=== PATIENT | male | born 1960 | race Two or more races ===

== ENCOUNTER 2025-06-10 05:54 | Inpatient (IN) | payer SELFPAY ==
[2025-06-10] MEDS ORDERED: Acetaminophen 325 MG TAB PO PRN (06:47)
[2025-06-10 06:53] VITALS: BMI 35.4
[2025-06-10 08:29] LABS: #Basophils Less than 0.03 10x3/uL (0.0-0.2); #Eosinophils Less than 0.03 10x3/uL (0.0-0.7); #Monocytes 0.31 10x3/uL (0.11-0.59); #Neutrophils 3.94 10x3/uL (1.40-6.50); %Basophils 0.2 % (0.0-1.0); %Eosinophils 0.2 % (0.0-10.0); %Lymphocytes 28.4 % (21.0-51.0); %Monocytes 5.2 % (0.0-10.0); %Neutrophils 65.8 % (42.0-75.0); Hematocrit 45.0 % (42.0-52.0); Hemoglobin 13.5 g/dL (14.0-18.0); Mean Corpuscular Hemoglobin 20.0 pg (27.0-31.0); Mean Corpuscular Volume 66.7 fL (78.0-98.0); Platelet Count 208 10x3/uL (130-400); Red Blood Cell (RBC) Count 6.75 mill/uL (4.70-6.10); White Blood Cell (WBC) Count 5.98 10x3/uL (4.8-10.8)
[2025-06-10 08:44] LABS: ALT (SGPT) 21 U/L (Less than 45); AST (SGOT) 18 U/L (11-34); Albumin 4.3 g/dL (3.1-4.5); Alkaline Phosphatase 89 U/L (40-110); Anion Gap 16 mmol/L (10-20); BUN (Urea Nitrogen) 9 mg/dL (8.4-25.7); Bilirubin, Total 0.4 mg/dL (0.3-1.2); Calc. Creatinine Clearance 137 mL/min (70-130); Calcium 9.7 mg/dL (7.8-10.44); Carbon Dioxide 26 mmol/L (23-31); Cardiac Risk 2.9 (Less than 4.5); Chloride 105 mmol/L (98-107); Cholesterol 135 mg/dl (< 200 Desired); Globulin 3.2 g/dL (2.4-3.5); Glucose 111 mg/dL (80-115); HDL Cholesterol 46 mg/dL (>60 Neg Risk); LDL Cholesterol, Calculated 72 mg/dL; Potassium 4.3 mmol/L (3.5-5.1); Sodium 143 mmol/L (136-145); Triglycerides 84 mg/dL (Less than 150)
[2025-06-10] MEDS: Ezetimibe 10 MG TAB PO SCH (09:06)
[2025-06-10] MEDS: Enoxaparin 40 MG (0.4 mL) SYRINGE SC SCH (09:07)
[2025-06-10 09:40] LABS: Anisocytosis SLIGHT = 6-15 cells HPF (0-5); Burr Cells SLIGHT = 2-5 cells HPF (0-1); Microcytosis SLIGHT = 6-15 cells HPF (0-5); Platelet Adequacy Comment Platelets Normal; Polychromasia SLIGHT = 2-3 cells HPF (0-2); Schistocytes SLIGHT = 2-5 cells HPF (0-1)
[2025-06-10] MEDS: Amiodarone 200 MG TAB PO SCH ×2 (11:10→14:30)
[2025-06-11 04:26] LABS: #Basophils Less than 0.03 10x3/uL (0.0-0.2); #Eosinophils 0.12 10x3/uL (0.0-0.7); #Monocytes 0.46 10x3/uL (0.11-0.59); #Neutrophils 2.40 10x3/uL (1.40-6.50); %Basophils 0.4 % (0.0-1.0); %Eosinophils 2.2 % (0.0-10.0); %Lymphocytes 43.7 % (21.0-51.0); %Monocytes 8.6 % (0.0-10.0); %Neutrophils 44.9 % (42.0-75.0); Hematocrit 40.2 % (42.0-52.0); Hemoglobin 12.2 g/dL (14.0-18.0); Mean Corpuscular Hemoglobin 20.1 pg (27.0-31.0); Mean Corpuscular Volume 66.3 fL (78.0-98.0); Platelet Count 221 10x3/uL (130-400); Red Blood Cell (RBC) Count 6.06 mill/uL (4.70-6.10); White Blood Cell (WBC) Count 5.35 10x3/uL (4.8-10.8)
[2025-06-11 04:31] LABS: ALT (SGPT) 17 U/L (Less than 45); AST (SGOT) 18 U/L (11-34); Albumin 3.8 g/dL (3.1-4.5); Alkaline Phosphatase 85 U/L (40-110); Anion Gap 12 mmol/L (10-20); BUN (Urea Nitrogen) 15 mg/dL (8.4-25.7); Bilirubin, Total 0.3 mg/dL (0.3-1.2); Calc. Creatinine Clearance 124 mL/min (70-130); Calcium 9.1 mg/dL (7.8-10.44); Carbon Dioxide 26 mmol/L (23-31); Chloride 110 mmol/L (98-107); Globulin 2.8 g/dL (2.4-3.5); Glucose 124 mg/dL (80-115); Potassium 3.9 mmol/L (3.5-5.1); Sodium 144 mmol/L (136-145)
[2025-06-11 05:17] LABS: Microcytosis SLIGHT = 6-15 cells HPF (0-5); Platelet Adequacy Comment Platelets Normal; Smudge Cells 7.0 %
[2025-06-11 08:25] VITALS: BP 132/81; TEMP 98
[2025-06-11] MEDS ORDERED: Amiodarone 200 MG TAB PO SCH (21:00)
[2025-06-12] MEDS ORDERED: Apixaban 5 MG TAB PO SCH (09:00)
== END 2025-06-11 09:33 | disposition home or self-care (01) | DRG 310 ==
LOC: 2SE 05:54 → OBSVTOIN 06:47
PROVIDERS: ADMIT Family Medicine; ATTEND Family Medicine
DX: I48.0 Paroxysmal atrial fibrillation (principal); I25.10 Atherosclerotic heart disease of native coronary artery without angina pectoris; E78.5 Hyperlipidemia, unspecified; Z95.5 Presence of coronary angioplasty implant and graft; Z79.899 Other long term (current) drug therapy; Z79.02 Long term (current) use of antithrombotics/antiplatelets; Z98.890 Other specified postprocedural states; Z90.49 Acquired absence of other specified parts of digestive tract
CPT/HCPCS: 36415; 80053; 80061; 83036; 84443; 84484; 85025; 93306; J1650